=== PATIENT | female | born 1990 | race Caucasian/White ===

== ENCOUNTER 2017-04-01 13:04 | Emergency (ER) | payer BC, MEDICAID ==
[2017-04-01 14:25] LABS: Hematocrit 38.7 % (30.3-42.9); Hemoglobin 12.4 gm/dl (10.1-14.3); Mean Corpuscular HGB Conc 32 % (30-34); Mean Corpuscular Hemoglobin 27 pg (28-32); Mean Corpuscular Volume 86 fl (79-97); Platelet Count 201 K/mm3 (140-440); Red Blood Count 4.53 M/mm3 (3.65-5.03); Red Cell Distribution Width 14.5 % (13.2-15.2); White Blood Count 8.3 K/mm3 (4.5-11.0)
--- NOTE | 2017-04-01 14:40 | Emergency Department Report ---
Chief Complaint: Vaginal Bleeding Stated Complaint: VAGINAL BLEEDING/BACK PAIN Time Seen by Provider: 04/01/17 14:38 - HPI History of Present Illness: Patient here reports that she has vaginal bleeding in an pelvic pain with positive home test. Last menstrual period was 02/27/2017. She reports nausea. Pain is in her pelvic area and 9 on the 10 and feels like she is having contraction. Denies any urinary burning frequency or urgency. - ROS Review of Systems: All systems are negative unless stated in HPI above - Exam Vital Signs: Vital Signs 04/01/17 13:47 Temperature 98.7 F Pulse Rate 75 Respiratory 18 Rate Blood Pressure 118/84 O2 Sat by Pulse 99 Oximetry Physical Exam: Gen.: This is a 26-year-old female well-nourished well-developed in no acute distress. ABD: Soft, tender to palpate the pelvic area. Normal bowel sounds in all quadrants. MSE screening note: Focused history and physical exam performed. Due to findings the following was ordered: ED Medical Decision Making - Lab Data Result diagrams: 04/01/17 13:58 - Medical Decision Making MDM: Patient screened by provider in triage area. Appropriate protocol initiated and patient to be seen in main ED by ED Disposition for MSE Condition: Stable
[2017-04-01 14:43] LABS: Anion Gap 13 mmol/L; BUN/Creatinine Ratio 14; Blood Urea Nitrogen 10 mg/dL (7-17); Calcium 8.8 mg/dL (8.4-10.2); Carbon Dioxide 27 mmol/L (22-30); Chloride 104.8 mmol/L (98-107); Glucose 88 mg/dL (65-100); Potassium 4.1 mmol/L (3.6-5.0); Sodium 141 mmol/L (137-145)
[2017-04-01 15:13] LABS: Bacteria,Urine 1+ /HPF (Negative); Bilirubin,Urine NEG (Negative); Blood,Urine MOD (Negative); Ketones,Urine NEG (Negative); Leukocyte Esterase,Urine NEG (Negative); Mucus,Urine 1+ /HPF; Nitrite,Urine NEG (Negative); Protein,Urine <15 mg/dL mg/dL (Negative)
--- NOTE | 2017-04-01 17:16 | Emergency Department Report ---
HPI - General Chief Complaint: Vaginal Bleeding Time Seen by Provider: 04/01/17 14:38 - HPI HPI: Room 19 The patient is a 26-year-old female presenting with chief complaint pelvic pain and vaginal bleeding. The patient states her last menstrual cycle occurred . The patient states several weeks ago she took a home test was positive. The patient states today she developed vaginal bleeding similar to the "end of a cycle." The patient also complains of pain in her right back after slip and fall 3 weeks ago. Patient denies dysuria or hematuria. Location: [See above] Duration: One day, 3 weeks Quality: Pain Severity: Moderate Modifying factors: [see above] Context: [see above] Mode of transportation: [not driving] ED Past Medical Hx - Past Medical History Hx Hypertension: Yes (with last ) - Surgical History Past Surgical History?: No - Family History Family history: no significant - Social History Smoking Status: Never Smoker Substance Use Type: None (denies illicit drug use) - Medications Home Medications: Home Medications Medication Instructions Recorded Confirmed Last Taken Type Acetaminophen/Codeine [Tylenol #3] 1 tab PO Q6H PRN #20 tab 03/14/15 Unknown Rx Hydrocortisone 1% [Hydrocortisone 1 applicatio TP TID #1 tube 03/14/15 Unknown Rx 1% CREAM] Ibuprofen [Motrin 800 MG tab] 800 mg PO Q8HR PRN #30 tablet 03/14/15 Unknown Rx Penicillin Vk [Veetids TAB] 500 mg PO QID #28 tablet 03/14/15 Unknown Rx Prednisone [predniSONE 5 mg (6-Day 5 mg PO .TAPER #1 tab.ds.pk 03/14/15 Unknown Rx Pack, 21 Tabs)] diphenhydrAMINE [Benadryl CAP] 25 mg PO Q6HR PRN #20 capsule 03/14/15 Unknown Rx Ibuprofen [Motrin 800 MG tab] 800 mg PO Q8HR PRN #20 tablet 04/01/17 Unknown Rx traMADol [Ultram] 50 mg PO Q6HR PRN #10 tablet 04/01/17 Unknown Rx ED Review of Systems ROS: Stated complaint: VAGINAL BLEEDING/BACK PAIN Other details as noted in HPI Comment: All other systems reviewed and negative Constitutional: denies: chills, fever Eyes: denies: eye pain, eye discharge, vision change ENT: denies: ear pain, throat pain Respiratory: denies: cough, shortness of breath, wheezing Cardiovascular: denies: chest pain, palpitations Endocrine: no symptoms reported Gastrointestinal: abdominal pain Genitourinary: abnormal menses Musculoskeletal: back pain Skin: denies: rash, lesions Neurological: denies: headache, weakness, paresthesias Psychiatric: denies: anxiety, depression Hematological/Lymphatic: denies: easy bleeding, easy bruising Physical Exam - Physical Exam Vital Signs: Vital Signs 04/01/17 13:47 Temperature 98.7 F Pulse Rate 75 Respiratory 18 Rate Blood Pressure 118/84 O2 Sat by Pulse 99 Oximetry Physical Exam: GENERAL: The patient is well-developed well-nourished female lying on stretcher not appearing to be in acute distress. [] HEENT: Normocephalic. Atraumatic. Extraocular motions are intact. Patient has moist mucous membranes. NECK: Supple. Trachea midline CHEST/LUNGS: Clear to auscultation. There is no respiratory distress noted. HEART/CARDIOVASCULAR: Regular. There is no tachycardia. There is no gallop rub or murmur. ABDOMEN: Abdomen is soft, nontender. Patient has normal bowel sounds. There is no abdominal distention. SKIN: There is no rash. There is no edema. There is no diaphoresis. NEURO: The patient is awake, alert, and oriented. The patient is cooperative. The patient has normal speech MUSCULOSKELETAL: There is no evidence of acute injury. ED Course Vital Signs 04/01/17 13:47 Temperature 98.7 F Pulse Rate 75 Respiratory 18 Rate Blood Pressure 118/84 O2 Sat by Pulse 99 Oximetry ED Medical Decision Making - Lab Data Result diagrams: 04/01/17 13:58 04/01/17 13:58 Laboratory Tests 04/01/17 04/01/17 04/01/17 13:58 13:58 13:58 WBC 8.3 RBC 4.53 Hgb 12.4 Hct 38.7 MCV 86 MCH 27 L MCHC 32 RDW 14.5 Plt Count 201 Sodium 141 Potassium 4.1 Chloride 104.8 Carbon Dioxide 27 Anion Gap 13 BUN 10 Creatinine 0.7 Estimated GFR > 60 BUN/Creatinine Ratio 14 Glucose 88 Calcium 8.8 HCG, Quant 1.29 Urine Color Urine Turbidity Urine pH Ur Specific [place] Urine Protein Urine Glucose (UA) Urine Ketones Urine Blood Urine Nitrite Urine Bilirubin Urine Urobilinogen Ur Leukocyte Esterase Urine WBC (Auto) Urine RBC (Auto) U Epithel Cells (Auto) Urine Bacteria (Auto) Urine Mucus Blood Type Antibody Screen 04/01/17 04/01/17 04/01/17 13:58 14:30 15:02 WBC RBC Hgb Hct MCV MCH MCHC RDW Plt Count Sodium Potassium Chloride Carbon Dioxide Anion Gap BUN Creatinine Estimated GFR BUN/Creatinine Ratio Glucose Calcium HCG, Quant Urine Color Yellow Urine Turbidity Clear Urine pH 7.0 Ur Specific [place] 1.021 Urine Protein <15 mg/dl Urine Glucose (UA) Neg Urine Ketones Neg Urine Blood Mod Urine Nitrite Neg Urine Bilirubin Neg Urine Urobilinogen 2.0 Ur Leukocyte Esterase Neg Urine WBC (Auto) 4.0 Urine RBC (Auto) 15.0 U Epithel Cells (Auto) 1.0 Urine Bacteria (Auto) 1+ Urine Mucus 1+ Blood Type O POSITIVE O POSITIVE Antibody Screen Negative - Radiology Data Radiology results: report reviewed (right renal ultrasound, pelvic ultrasound), image reviewed (right renal ultrasound, pelvic ultrasound) Renal ultrasound (read by radiologist)-no hydronephrosis bilaterally Pelvic ultrasound (read by radiologist)-unremarkable exam - Differential Diagnosis missed , spontaneous , menorrhagia, renal colic Critical care attestation.: If time is entered above; I have spent that time in minutes in the direct care of this critically ill patient, excluding procedure time. ED Disposition Clinical Impression: Abnormal vaginal bleeding, Right flank pain Disposition: - TO HOME OR SELFCARE Is pt being admited?: No Does the pt Need Aspirin: No Condition: Stable Instructions: Spontaneous Miscarriage (ED) Additional Instructions: Return to the emergency department immediately should you develop worsening symptoms, fever, inability to tolerate food or liquid or any other concerns. Prescriptions: Ibuprofen [Motrin 800 MG tab] 800 mg PO Q8HR PRN #20 tablet PRN Reason: Pain traMADol [Ultram] 50 mg PO Q6HR PRN #10 tablet PRN Reason: Pain Referrals: [facility] [Outside] - 3-5 Days PRIMARY CAREMD [Primary Care Provider] - 3-5 Days PASCUAL JACKSON MD [Staff Physician] - 3-5 Days (Dr. Jackson is an orthopedic surgeon. Please follow-up with him for further evaluation) Time of Disposition: 19:05
--- NOTE | 2017-04-01 19:00 | Ultrasound Report ---
FINAL REPORT PROCEDURE: US RENAL BILAT TECHNIQUE: Real-time sonography in multiple planes of the kidneys, ureters and urinary bladder was performed with image documentation. CPT 80090 HISTORY: right back pain COMPARISON: No prior studies are available for comparison. FINDINGS: RIGHT kidney: The right renal cortex is isoechoic to the liver parenchyma, which can be normal variant or related to medical renal disease. No focal renal mass, calculus, or hydronephrosis. Length: 10.4 cm. LEFT kidney: No focal renal mass, calculus, or hydronephrosis. Length: 11.5cm. Bladder: Normal. IMPRESSION: No hydronephrosis bilaterally.
--- NOTE | 2017-04-01 19:03 | Ultrasound Report ---
FINAL REPORT PROCEDURE: US TRANSVAGINAL and transabdominal TECHNIQUE: Real-time transabdominal sonography in multiple planes of the pelvis was performed. The pelvic structures, especially the ovaries were not optimally visualized. Transvaginal sonography was then performed to better evaluate the structures and/or abnormalities described below with image documentation. CPT 99800 and 45928 HISTORY: pelvic pain, menorrhagia COMPARISON: No prior studies are available for comparison. FINDINGS: UTERUS Size: 11.5 x 4.8 x 4.4 cm. Endometrial thickness: 6 mm. Orientation: Retroflexed. Cervix: Normal. Fibroids/masses: None. RIGHT Ovary: 2.5 x 1.9 x 1.6 cm. Appearance: Normal. LEFT Ovary: 4.0 x 1.1 x 3.0 cm. Appearance: Normal. Pelvic fluid: None. Other: None. IMPRESSION: Unremarkable exam
--- NOTE | 2017-04-01 19:05 | Ultrasound Report ---
FINAL REPORT PROCEDURE: US PELVIC COMPLETE TECHNIQUE: Real-time transabdominal sonography in multiple planes of the pelvis was performed. The pelvic structures, especially the ovaries were not optimally visualized. Transvaginal sonography was then performed to better evaluate the structures and/or abnormalities described below with image documentation. CPT 59549 and 70771 HISTORY: pelvic pain, menorrhagia COMPARISON: No prior studies are available for comparison. FINDINGS: UTERUS Size: 11.5 x 4.8 x 4.4 cm. Endometrial thickness: 6 mm. Orientation: Retroflexed. Cervix: Normal. Fibroids/masses: None. RIGHT Ovary: 2.5 x 1.9 x 1.6 cm. Appearance: Normal. LEFT Ovary: 4.0 x 1.1 x 3.0 cm. Appearance: Normal. Pelvic fluid: None. IMPRESSION: Unremarkable exam
[2017-04-01 19:46] VITALS: BP 117/81
== END 2017-04-01 19:42 | disposition home or self-care (01) ==
LOC: ED 13:04
DX: N93.8 Other specified abnormal uterine and vaginal bleeding (principal); R10.9 Unspecified abdominal pain; I10 Essential (primary) hypertension
CPT/HCPCS: 36415; 76770; 76830; 76856; 80048; 81001; 84702; 85027; 86850; 86900; 86901

== ENCOUNTER 2018-02-16 20:19 | Emergency (ER) | payer SELFPAY ==
[2018-02-16] MEDS ORDERED: NACL 0.9% 1000 ML 1,000 ML ONE (21:42)
[2018-02-16] MEDS ORDERED: ZOFRAN ONE (21:42)
[2018-02-16] MEDS ORDERED: ZOFRAN IV ONE (21:51)
[2018-02-16] MEDS ORDERED: NACL 0.9% 1000 ML 1,000 ML IV ONE (21:52)
[2018-02-16 22:02] LABS: Basophils % (Auto) 0.2 % (0.0-1.8); Eosinophils # (Auto) 0.1 K/mm3 (0.0-0.4); Eosinophils % (Auto) 0.6 % (0.0-4.3); Hematocrit 42.2 % (30.3-42.9); Hemoglobin 13.6 gm/dl (10.1-14.3); Lymphocytes # (Auto) 1.3 K/mm3 (1.2-5.4); Lymphocytes % (Auto) 9.5 % (13.4-35.0); Mean Corpuscular HGB Conc 32 % (30-34); Mean Corpuscular Hemoglobin 28 pg (28-32); Mean Corpuscular Volume 88 fl (79-97); Monocytes # (Auto) 0.9 K/mm3 (0.0-0.8); Monocytes % (Auto) 6.5 % (0.0-7.3); Platelet Count 166 K/mm3 (140-440); Red Cell Distribution Width 13.5 % (13.2-15.2)
[2018-02-16 22:22] LABS: BUN/Creatinine Ratio 13; Blood Urea Nitrogen 9 mg/dL (7-17); Calcium 8.8 mg/dL (8.4-10.2); Hemolysis Index 14
--- NOTE | 2018-02-16 22:45 | XRay Report ---
FINAL REPORT EXAM: XR CHEST ROUTINE 2V HISTORY: cough TECHNIQUE: PA and lateral views of the chest Comparison: None FINDINGS: There is prominence of the interstitial markings with peribronchial thickening. This may represent changes of bronchiolitis. There is no evidence of focal infiltrate, pneumothorax or pleural fluid collection. The cardiomediastinal silhouette is normal in appearance. The bony structures are notable for dextrocurvature of the thoracic spine. IMPRESSION: 1. Prominence of the interstitial markings with peribronchial thickening. This may represent changes of bronchiolitis. 2. Dextrocurvature thoracic spine.
[2018-02-17] MEDS ORDERED: NACL 0.9% IV ONE (02:24)
[2018-02-17] MEDS ORDERED: TYLENOL PO ONE ×2 (02:24→02:25)
--- NOTE | 2018-02-17 02:24 | Emergency Department Report ---
Vomiting/Diarrhea - HPI Chief Complaint: Nausea/Vomiting/Diarrhea Stated Complaint: VIRUS/FLU Time Seen by Provider: 02/17/18 02:10 Duration: 1 Day Severity: severe Nausea/Vomiting Severity: Mild Diarrhea Severity: Severe Symptoms: Yes Watery Diarrhea, Yes Fever, Yes Contacts w/ Similar Symptoms, No Bloody diarrhea, No Able to Tolerate Fluids, No Recent Unusual Foods, No Recent Untreated Water, No Recent use of Antibiotics, No Rash, No Hematuria, No Recent URI Symptoms Other History: 27-year-old -[place] female presents to the emergency room for sore throat right nose cough times one day. Vomiting and diarrhea today. Patient reports she had a subjective fever. She reports that she last vomited 7 hours ago. She no longer has nausea 30 minutes ago she had diarrhea. Patient reports no past medical history currently takes no medications on a daily basis. ED Review of Systems ROS: Stated complaint: VIRUS/FLU Other details as noted in HPI Constitutional: fever ENT: throat pain, congestion, other (rhinorrhea) Respiratory: cough Gastrointestinal: nausea, vomiting, diarrhea Genitourinary: denies: urgency, dysuria, discharge Musculoskeletal: denies: back pain, joint swelling, arthralgia Skin: denies: rash, lesions Neurological: denies: headache, weakness, paresthesias Psychiatric: denies: anxiety, depression Hematological/Lymphatic: denies: easy bleeding, easy bruising ED Past Medical Hx - Past Medical History Hx Hypertension: Yes (with last ) - Surgical History Past Surgical History?: No - Social History Smoking Status: Current Every Day Smoker Substance Use Type: None - Medications Home Medications: Home Medications Medication Instructions Recorded Confirmed Last Taken Type Acetaminophen/Codeine [Tylenol #3] 1 tab PO Q6H PRN #20 tab 03/14/15 Unknown Rx Hydrocortisone 1% [Hydrocortisone 1 applicatio TP TID #1 tube 03/14/15 Unknown Rx 1% CREAM] Ibuprofen [Motrin 800 MG tab] 800 mg PO Q8HR PRN #30 tablet 03/14/15 Unknown Rx Penicillin Vk [Veetids TAB] 500 mg PO QID #28 tablet 03/14/15 Unknown Rx Prednisone [predniSONE 5 mg (6-Day 5 mg PO .TAPER #1 tab.ds.pk 03/14/15 Unknown Rx Pack, 21 Tabs)] diphenhydrAMINE [Benadryl CAP] 25 mg PO Q6HR PRN #20 capsule 03/14/15 Unknown Rx Ibuprofen [Motrin 800 MG tab] 800 mg PO Q8HR PRN #20 tablet 04/01/17 Unknown Rx traMADol [Ultram] 50 mg PO Q6HR PRN #10 tablet 04/01/17 Unknown Rx Vomiting Diarrhea Exam - Exam General: Vital signs noted. No distress. Alert and acting appropriately. HEENT: Yes Moist Mucous Membranes, No Pharyngeal Erythema, No Pharyngeal Exudates, No Rhinorrhea, No Conjuctival Injection, No Frontal Tenderness, No Maxillary Tenderness Neck: Yes Adenopathy Lungs: Yes Clear Lung Sounds Heart exam: Tachycardia: Yes Abdomen: Tenderness: No, Peritoneal Signs: No, Distention: No, Hyperactive Bowel sounds: No Skin exam: Rash: No, Edema: No, Normal turgor: Yes Neurologic: Alert and oriented, no deficits. Musculoskeletal: Unremarkable. ED Course Vital Signs 02/16/18 21:22 Temperature 99 F Pulse Rate 111 H Respiratory 16 Rate Blood Pressure 130/80 O2 Sat by Pulse 98 Oximetry - Reevaluation(s) Reevaluation #1: 02/17/18 04:05 Patient reports that she wants to go home that she feels better. ED Medical Decision Making - Lab Data Result diagrams: 02/16/18 21:50 02/16/18 21:49 - Medical Decision Making Patient has been evaluated by this provider fast track. Patient came in for viral-like symptoms. It was noted that patient was tachycardic patient was given fluids 2 L Zofran. Review of chart patient is using elevated about 94-98 heart rate. Patient's had negative strep chest x- ray and urinalysis. We'll discharge patient home for her to follow up with her primary care provider or [facility]. Encouraged patient to drink fluids and advance her diet as tolerated. Critical care attestation.: If time is entered above; I have spent that time in minutes in the direct care of this critically ill patient, excluding procedure time. ED Disposition Disposition: [id number] TO HOME OR SELFCARE Is pt being admited?: No Does the pt Need Aspirin: No Condition: Stable Instructions: Viral Syndrome (ED) Additional Instructions: Please continue to drink plenty of fluids and advance her diet as tolerated. Tylenol Motrin for fever management if her symptoms persist or gets worse please follow up with her primary care provider or [facility]. Referrals: PRIMARY CARE [Primary Care Provider] - 3-5 Days [facility] [Provider Group] - 3-5 Days Forms: Work/School Release Form(ED)
[2018-02-17] MEDS ORDERED: NACL 0.9% 1000 ML 1,000 ML IV ONE (02:25)
[2018-02-17] MEDS ORDERED: NACL 0.9% 1000 ML 1,000 ML ONE (02:29)
[2018-02-17] MEDS ORDERED: TYLENOL ONE (02:29)
[2018-02-17 04:03] VITALS: BP 119/73
== END 2018-02-17 04:15 | disposition home or self-care (01) ==
LOC: ED 20:19
DX: R05 Cough (principal); R07.0 Pain in throat; R11.10 Vomiting, unspecified; R19.7 Diarrhea, unspecified; I10 Essential (primary) hypertension; F17.200 Nicotine dependence, unspecified, uncomplicated
CPT/HCPCS: 36415; 71046; 80048; 84703; 85025; 87116; 87400; 87430; 96361; 96374; 99284; J2405; J7030